=== PATIENT | male | born 2000 | race Caucasian/White ===

== ENCOUNTER 2022-10-29 12:50 | Inpatient (IN) | payer BC ==
[2022-10-29] VITALS (7 sets, daily range): BP systolic 132–154; BP diastolic 71–88; PULSE 90–100; TEMP 100
[~2022-10-29] VITALS: Wt 122.7 kg
[2022-10-29 13:49] LABS: BASO % 0.5 % (0.0-2.0); EOS # 0.1 K/mm3 (0.0-0.7); EOS % 1.4 % (0.0-4.0); GRAN # 4.2 K/mm3 (1.4-6.5); GRAN % 67.7 % (42.2-75.2); HEMATOCRIT 44.2 % (42.0-52.0); HEMOGLOBIN 16.5 g/dl (13.5-18.0); LYMPH # 1.5 K/mm3 (1.2-3.4); LYMPH % 23.1 % (20.0-51.0); MEAN CELL VOLUME 84 fl (80.0-100.0); MEAN CORPUSCULAR HEMOGLOBIN 31 pg (27-31); MEAN CORPUSCULAR HGB CONC 37 g/dl (33.0-37.0); MEAN PLATELET VOLUME 11.1 fl (7.4-10.4); MONO # 0.4 K/mm3 (0.1-0.6); PLATELET COUNT 195 K/mm3 (130-400); RED BLOOD COUNT 5.29 M/mm3 (4.20-5.60); REDCELL DISTRIBUTION WIDTH-CV 12.2 % (11.5-14.5)
[2022-10-29 14:14] LABS: ALBUMIN 4.7 gm/dL (3.5-5.0); C-REACTIVE PROTEIN 0.09 mg/dL (0.00-0.50); CALCIUM 9.7 mg/dL (8.4-10.2); CREATININE, serum 0.95 mg/dL (0.72-1.25); POTASSIUM 3.9 mmol/L (3.5-4.5); TOTAL PROTEIN 7.7 gm/dL (6.2-8.1)
[2022-10-29 14:53] LABS: BILIRUBIN,TOTAL 1.3 mg/dL (0.2-1.2)
--- NOTE | 2022-10-29 20:25 | NUR ---
pt brought to room from pacu, family at bedside. pt reports pain is stable at a 3/10. abdominal incision is cdi. vss. haji to dd w yellow urine output. LR infusing into right ac. scds to ble. pt tolerting fluid intake. no needs at this time. call light in reach.
--- NOTE | 2022-10-29 21:35 | NUR ---
pt reports increase in pain, [employer] WORKER started
[2022-10-30] VITALS (11 sets, daily range): BP systolic 103–144; BP diastolic 49–68; PULSE 64–96; TEMP 98–98.5
--- NOTE | 2022-10-30 06:06 | NUR ---
pt reports having intermittent pain. dressing saturated and redressed. pt wanting to try some liquids this morning
[2022-10-30 07:31] LABS: HEMATOCRIT 38.4 % (42.0-52.0)
[2022-10-30 07:33] LABS: HEMOGLOBIN 14.3 g/dl (13.5-18.0)
[2022-10-30 07:35] LABS: CREATININE, serum 0.96 mg/dL (0.72-1.25); POTASSIUM 4.1 mmol/L (3.5-4.5)
--- NOTE | 2022-10-30 08:13 | NUR ---
0800 assessment completed. Patient denies disscomfort at this time. Patient stated he has been handling clear liquids well.
--- NOTE | 2022-10-30 11:31 | NUR ---
Initial visit: Director Of Marketing stopped by room on rounds. Pt was resting and content. Pt has no needs right now. Director Of Marketing will follow up as needed.
--- NOTE | 2022-10-30 14:43 | NUR ---
EMELYN met with the patient, his mother (Radha), and girlfriend (Kelsy) to discuss discharge plan. The patient is from [place]. He is a student at [employer] and lives with roommates in a house in [place]. He reports independence with ADLs and does not have any DME. The patient's PCP is Dr. Wagner Nance in [place], but he goes to [facility] while in [place], if needed. He plans to obtain his medications from [facility]. The patient does not have a DPOA-HC. His parents: Radha and Wayne Michaels (ph#[phone]) are his legal next of kin. The patient plans to return home upon discharge. No additional needs at this time. *Discharge plan: home*
--- NOTE | 2022-10-30 20:42 | NUR ---
pt resting in bed, family at bedside. pt states pain is ok, most of his pain is from feeling like he needs to have a bowel movement. gait steady in room and to the bathroom. tolerating diet well. denies nv. abdominal dressing w some bloody drainage. no other needs at this time. call light in reach.
--- NOTE | 2022-10-30 22:33 | NUR ---
pt up ambulating multiple laps in the [place]
[2022-10-31] VITALS (9 sets, daily range): BP systolic 114–132; BP diastolic 45–77; PULSE 67–93; TEMP 97.9–99
--- NOTE | 2022-10-31 07:16 | NUR ---
Received shift report from the night nurseElenita RN and resume care.
--- NOTE | 2022-10-31 07:55 | NUR ---
DIRECTOR OF PLACEMENT pump d/c at 0730 per doctor's and another nurse verified with the usage and discontinuation.
--- NOTE | 2022-10-31 08:30 | NUR ---
Patient c/o at mid abdomen at the incision area. Patient rated pain level 7/10 and percocet administered per prn orders.
--- NOTE | 2022-10-31 09:58 | NUR ---
0800 assessment completed. Patient stated he has pain but it is "tolerable". Patient states he "is passing gas". Primary nurse notified of complaints of pain.
--- NOTE | 2022-10-31 11:16 | NUR ---
Primary Nurse Mana notified of Blood Pressure.
--- NOTE | 2022-10-31 12:49 | NUR ---
Patient request for pain medication at midline incision. Patient rated painl level 6/10. Medication administered. See e-mar for documentation.
[2022-10-31] MEDS ORDERED: AMOXICILLIN 8751 TAB PO (16:42)
[2022-10-31] MEDS ORDERED: PERCOCET 325 MG1 TA2 PO (16:43)
--- NOTE | 2022-10-31 18:21 | NUR ---
Patient walked in a hallway and did well with no issues.
--- NOTE | 2022-10-31 21:32 | NUR ---
Patient assessed at this time, head to toe assessment done, see shift assessment, took a shower an hour ago as per order, noted scant serosanguionous drainage to abdominal dressing, change dressing with non-adherent pad, gauze and tape, rates pain at 6/10, Percocet given per request, ELSA's on, call light and personal items within reach, will continue to monitor.
[2022-11-01 03:34] VITALS: BP 133/71; BP 133/72; PULSE 72; TEMP 98.5; TEMP 985
[2022-11-01 07:27] VITALS: BP 121/70; PULSE 79; TEMP 98.6
--- NOTE | 2022-11-01 07:48 | NUR ---
PATIENT ALERT AND ORIENTED X4. VSS. PATIENT HERE FOR SMALL BOWEL PERFORATION, LAPORASCOPIC BOWEL RESECTION, AND INCIDENTAL APPENDECTOMY. PATIENT REPORTS PAIN 7/10, REQUESTS PAIN MEDICATION. IV TO RIGHT AC INT, FLUSHES WELL. BOWEL SOUNDS HYPOACTIVE. MIDLINE INCISION WITH JESSCIA AND GAUZE CLEAN AND DRY. PATIENT DENIES ANY FURTHER NEEDS.
--- NOTE | 2022-11-01 11:55 | NUR ---
DISCHARGE INSTRUCTIONS PROVIDED. PATIENT EDUCATION GIVEN. IV DC'D. FOLLOW UP APPOINTMENT DISCUSSED. MEDICATIONS REVIEWED. DRESSING CHANGE INSTRUCTIONS PROVIDED. PATIENT DENIES ANY QUESTIONS OR CONCERNS. PATIENT AND BELONGINGS ESCORTED OUT.
--- NOTE | 2022-11-01 12:15 | NUR ---
Barn Manager rounds: Barn Manager had seen Patient and Visitor walking hallways earlier. Barn Manager visit offered in room. Both were viewing the screen of a laptop. Patient politely declined.
== END 2022-11-01 11:25 | disposition home or self-care (01) | DRG 329 ==
LOC: COL.ER 12:50 → SURG 16:55
PROVIDERS: Emergency Medicine; ADMIT Surgery
PROC: 0DB80ZZ Excision of Small Intestine, Open Approach (ICD-10-PCS; principal; 2022-10-29 18:00)
PROC: 0DJV4ZZ Inspection of Mesentery, Percutaneous Endoscopic Approach (ICD-10-PCS; 2022-10-29 18:00)
PROC: 0DTJ0ZZ Resection of Appendix, Open Approach (ICD-10-PCS; 2022-10-29 18:00)
DX: K50.018 Crohn's disease of small intestine with other complication (principal); K63.1 Perforation of intestine (nontraumatic); K65.9 Peritonitis, unspecified; J45.909 Unspecified asthma, uncomplicated; Z23 Encounter for immunization
CPT/HCPCS: A4314; A9284; J0295; J0330; J0690; J1100; J1170; J1650; J2270; J2405; J2543; J2704; J2765; J2795; J3010; J7030; J7120; Q9967